=== PATIENT | female | born 1985 | race Caucasian/White ===

== ENCOUNTER 2022-04-11 15:09 | Inpatient (IN) | payer BC ==
[~2022-04-11] VITALS: Ht 160 cm; Wt 90.0 kg
[2022-04-11] VITALS (14 sets, daily range): BP systolic 94–132; BP diastolic 56–96; PULSE 60–85; TEMP 98–98.3
--- NOTE | 2022-04-11 14:25 | NUR ---
1425-THAIS Camarillo, here for epidural placement per patient request. 1428-Patient repostioned to sitting upright at side of bed. Time-out completed. 1431-Local anesthetic administered by PLANT TECHNICAL SPECIALIST. 1432-Epidural space obtained by THAIS, single shot dose administered by THAIS, epidural catheter threaded.
[2022-04-11 14:48] LABS: BASO # 0.1 K/mm3 (0.0-0.2); BASO % 0.3 % (0.0-2.0); EOS % 0.1 % (0.0-4.0); GRAN # 14.2 K/mm3 (1.4-6.5); GRAN % 81.8 % (42.2-75.2); HEMOGLOBIN 12.7 g/dl (12.5-16.0); LYMPH % 11.5 % (20.0-51.0); MEAN CELL VOLUME 91 fl (80.0-100.0); MEAN CORPUSCULAR HEMOGLOBIN 31 pg (27-31); MEAN CORPUSCULAR HGB CONC 34 g/dl (33.0-37.0); MEAN PLATELET VOLUME 10.1 fl (7.4-10.4); MONO % 5.7 % (1.7-9.3); PLATELET COUNT 359 K/mm3 (130-400); RED BLOOD COUNT 4.07 M/mm3 (4.10-5.30); REDCELL DISTRIBUTION WIDTH-CV 13.3 % (11.5-14.5)
--- NOTE | 2022-04-11 14:55 | NUR ---
1455-SROM clear fluid. Repeat SVE /0. 1457- notified patient here, G2L1, SROM @ 1455, clear fluid, 40.1 wks gestation, patient of , but in surgery. Informed of 4 minute deceleration into 70s-80s, moderate variability remains, O2 on, position changes, scalp stim provided, request he come to hospital. 1458-O2 on @ 10L/min per simple face mask, LR bolus in progress.
--- NOTE | 2022-04-11 15:00 | NUR ---
Repositioned to knee chest. Initial dose PCNG 5 MU begun.
--- NOTE | 2022-04-11 15:05 | NUR ---
here. Reviews monitor strip.
--- NOTE | 2022-04-11 15:07 | NUR ---
here, repeat SVE /0. Reviews strip. Note moderate variability remains.
[~2022-04-11 15:09] MED LIST: AMOXICILLIN 8751 TAB PO; PRENATAL TABLET PO; ZOFRAN8 MG PO
--- NOTE | 2022-04-11 15:30 | NUR ---
Repositioned to right lateral with stirrup.
--- NOTE | 2022-04-11 15:40 | NUR ---
in for repeat SVE. Antlip/+1. Discusses with patient and this marketing copywriter will begin pushing efforts to reduce remaining cervix.
--- NOTE | 2022-04-11 15:43 | NUR ---
First push attempt with instruction.
--- NOTE | 2022-04-11 15:50 | NUR ---
1550-Spontaneous vaginal delivery of male infant by over intact perineum. 155-Spontaneous vaginal delivery of placenta by . Pit bolus begun immediately following at 333mU/min.
--- NOTE | 2022-04-11 17:40 | NUR ---
Ambulates to BR for first time post delivery. Steady gait noted. Spontaneous void noted. Orly care provided. Mesh underwear, orly pad, ice pack, clean gown applied. Ambulates to PP 215.
[2022-04-11] MEDS ORDERED: MOTRIN 800800 MG/TAB PO (18:24)
[2022-04-12 08:15] VITALS: BP 130/68; PULSE 76; TEMP 97.7
--- NOTE | 2022-04-12 09:48 | NUR ---
Initial visit; Parents thanked [employer] Inspector for offering congratulations and God's blessings for the of their son. Snuff Container Inspector thanked family for choosing [facility]. Parents stated their stay here has been wonderful.
[2022-04-12 11:41] VITALS: BP 122/63; PULSE 69; TEMP 98.7
[2022-04-12 17:09] VITALS: BP 98/72; PULSE 62; TEMP 98
[2022-04-12 20:00] VITALS: BP 119/71; PULSE 75; TEMP 97.8
[2022-04-13 09:25] VITALS: BP 116/65; PULSE 75; TEMP 98
--- NOTE | 2022-04-13 10:15 | NUR ---
Discharge instructions and follow up care reviewed with pt and at the bedside. Both verbalized an understanding, agreed with the plan and states no questions or concerns at this time.
== END 2022-04-13 10:45 | disposition home or self-care (01) | DRG 807 ==
LOC: LDRO 15:09 → LDR 15:11 → OB 15:11
PROVIDERS: ADMIT Obstetrics & Gynecology
PROC: 10E0XZZ Delivery of Products of Conception, External Approach (ICD-10-PCS; principal; 2022-04-11)
DX: O99.824 Streptococcus B carrier state complicating childbirth (principal); Z37.0 Single live birth; O99.344 Other mental disorders complicating childbirth; F41.9 Anxiety disorder, unspecified; F32.A Depression, unspecified; Z3A.40 40 weeks gestation of pregnancy
CPT/HCPCS: J2540; J2590; J3010; J7120